=== PATIENT | male | born 1945 | race Caucasian/White ===

== ENCOUNTER 2017-07-09 22:55 | Emergency (ER) | payer MEDICARE, OTHER ==
--- NOTE | 2017-07-10 08:18 | RAD ---
RIGHT KNEE 3 VIEWS: Date: 07/09/17 HISTORY: 72-year-old male with history of knee pain. FINDINGS: Tricompartment degenerative changes. No fracture or dislocation. IMPRESSION: Degenerative changes without fracture or dislocation. POS: OFF
== END 2017-07-10 00:18 | disposition home or self-care (01) ==
LOC: ERS 22:55
DX: S80.11XA Contusion of right lower leg, initial encounter (principal); M23.91 Unspecified internal derangement of right knee; W01.0XXA Fall on same level from slipping, tripping and stumbling without subsequent striking against object, initial encounter